=== PATIENT | male | born 1990 | race African-American/Black ===

== ENCOUNTER 2021-08-20 13:01 | Emergency (ER) | payer BC ==
[2021-08-20 14:46] VITALS: BP 137/102; PULSE 71
--- NOTE | 2021-08-20 16:15 | EDM.PDOC ---
ED HPI GENERAL MEDICAL PROBLEM - General Chief Complaint: Lower Extremity Injury/Pain Stated Complaint: SPARP HEEL PAIN Time Seen by Provider: 08/20/21 15:48 Source of Information: Reports: Patient, RN Notes Reviewed - History of Present Illness INITIAL COMMENTS - FREE TEXT/NARRATIVE: 31 yr old male comes in with L achilles pain. Started 2 days ago. Not aware of any particular injury. No pain at rest. Mild to moderate pain with walking. Left Foot Pain Score (Numeric/FACES): 5 - Related Data Allergies Allergy/AdvReac Type Severity Reaction Status Date / Time No Known Allergies Allergy Verified 01/25/16 06:48 Home Meds: Home Meds . [No Known Home Meds] 08/20/21 [History] Past Medical History - Past Health History Medical/Surgical History: Denies Medical/Surgical History - Infectious Disease History Infectious Disease History: Reports: None Social & Family History - Tobacco Use Tobacco Use Status *Q: Never Tobacco User - Caffeine Use Caffeine Use: Reports: None - Recreational Drug Use Recreational Drug Use: No Review of Systems - Review of Systems Review Of Systems: See Below Constitutional: Reports: No Symptoms Respiratory: Reports: No Symptoms Cardiovascular: Reports: No Symptoms GI/Abdominal: Reports: No Symptoms Musculoskeletal: Reports: Other (L achilles pain) Skin: Reports: No Symptoms Neurological: Reports: No Symptoms ED EXAM, GENERAL - Physical Exam Exam: See Below General Appearance: Alert, No Apparent Distress Head: Atraumatic Neck: Supple Respiratory/Chest: No Respiratory Distress Extremities: Other (very mild tenderness L achilles at attachment area to L heel, no palpable defect or deformity, no swelling, foot otherwise nontender, ankle nontender, no pain with flexion or dorsiflexion, no visible pain walking) Course - Vital Signs Last Recorded V/S: Last Vital Signs Temp 98.6 F 08/20/21 14:43 Pulse 71 08/20/21 14:43 Resp 20 08/20/21 14:43 BP 137/102 H 08/20/21 14:43 Pulse Ox 99 08/20/21 14:43 - Re-Assessments/Exams Free Text/Narrative Re-Assessment/Exam: 08/21/21 07:19 X rays not clinically indicated Departure - Departure Time of Disposition: 16:11 Disposition: Home, Self-Care 01 Condition: Fair Clinical Impression: Strain of Achilles tendon Qualifiers: Encounter type: initial encounter Laterality: left Qualified Code(s): S86.012A - Strain of left Achilles tendon, initial encounter - Discharge Information Instructions: Muscle Strain Referrals: PCP,None [Primary Care Provider] - Forms: ED Department Discharge Additional Instructions: Santi wrap L ankle. Rest and elevate foot and ankle as much as possible. Motrin or ibuprofen 600 mg (3 tabs 3 times daily for pain as needed) Follow up clinic if not much better within 4 to 5 days as expected.
== END 2021-08-20 16:24 | disposition home or self-care (01) ==
LOC: JD.ED 13:01
DX: S86.012A Strain of left Achilles tendon, initial encounter (principal); X58.XXXA Exposure to other specified factors, initial encounter
CPT/HCPCS: 99283

== ENCOUNTER 2022-10-26 18:04 | Emergency (ER) | payer BC ==
[2022-10-26 18:22] VITALS: BP 144/96; PULSE 71
[2022-10-26] MEDS ORDERED: Magnesium Citrate Solution 296 ML Bottle PO ONE (19:45)
[2022-10-26] MEDS ORDERED: Polyethylene Glycol 3350 Powder 17 GM Packet PO ONE (20:13)
== END 2022-10-26 20:31 | disposition home or self-care (01) ==
LOC: JD.ED 18:04
DX: K59.00 Constipation, unspecified (principal)
CPT/HCPCS: 36415; 74019; 80053; 81003; 85025; 99284; A9270